=== PATIENT | male | born 1950 | race Caucasian/White ===

== ENCOUNTER 2019-02-07 06:29 | Outpatient (CLI) | payer MEDICARE ==
[2019-02-07] VITALS (12 sets, daily range): BP systolic 123–164; BP diastolic 53–77
[~2019-02-07] VITALS: Ht 172.7 cm; Wt 154.2 kg
[2019-02-07] MEDS ORDERED: BENA1TAB44 PO (07:26)
[2019-02-07] MEDS ORDERED: ALLO300T PO (07:26)
[2019-02-07] MEDS ORDERED: ASPI-630 PO (07:26)
[2019-02-07] MEDS ORDERED: LEVO200T5 PO (07:26)
[2019-02-07] MEDS ORDERED: FURO-69 PO (07:26)
[2019-02-07] MEDS ORDERED: METF500T16 PO (07:26)
[2019-02-07] MEDS ORDERED: ATOR20TA PO (07:26)
[2019-02-07] MEDS ORDERED: POTA10TA12 PO (07:26)
[2019-02-07] MEDS ORDERED: METO25TA2 PO (07:26)
[2019-02-07] MEDS ORDERED: IODIXANOL 320 MG/ML 100 ML VIAL. ONE (07:36)
[2019-02-07] MEDS ORDERED: LIDOCAINE 1% PF 2 ML VIAL. ONE (07:37)
[2019-02-07 07:40] LABS: HEMATOCRIT 45.6 % (39.0-53.0); HEMOGLOBIN 14.9 g/dL (13.0-17.5); RED BLOOD COUNT 4.77 x10^6/uL (4.30-5.70); RED CELL DISTRIBUTION WIDTH 15.9 % (11.5-14.5); WHITE BLOOD COUNT 6.6 x10^3/uL (4.0-11.0)
[2019-02-07 07:50] LABS: CALCIUM 9.5 mg/dL (8.5-10.1); CREATININE 1.2 mg/dL (0.7-1.3); GFR 60.4
[2019-02-07 08:01] LABS: PROTHROMBIN TIME PATIENT 13.2 SEC (11.7-14.0)
[2019-02-07] MEDS ORDERED: fentaNYL PF VIAL 100 MCG/2 ML VIAL ONE (08:18)
[2019-02-07] MEDS ORDERED: HEPARIN for IV BOLUS 10,000 UNIT/10 ML VIAL. ONE (08:18)
[2019-02-07] MEDS ORDERED: MIDAZOLAM HCL/PF 5 MG/5 ML VIAL. ONE (08:18)
[2019-02-07] MEDS ORDERED: NITROGLYCERIN 200 MCG/2 ML SYRINGE FOR CATH/VASC LAB. ONE (08:19)
[2019-02-07] MEDS ORDERED: VERAPAMIL 5 MG/2 ML VIAL. ONE (08:19)
[2019-02-07] MEDS ORDERED: LIDOCAINE 1% PF 2 ML VIAL. INJ ONE (08:45)
[2019-02-07] MEDS ORDERED: MIDAZOLAM HCL/PF 5 MG/5 ML VIAL. IV ONE (08:45)
[2019-02-07] MEDS ORDERED: fentaNYL PF VIAL 100 MCG/2 ML VIAL IV ONE (08:45)
[2019-02-07] MEDS ORDERED: HEPARIN for IV BOLUS 10,000 UNIT/10 ML VIAL. IART ONE (08:45)
[2019-02-07] MEDS ORDERED: IODIXANOL 320 MG/ML 100 ML VIAL. IART ONE (08:45)
[2019-02-07] MEDS ORDERED: VERAPAMIL 5 MG/2 ML VIAL. IART ONE (08:45)
[2019-02-07] MEDS ORDERED: NITROGLYCERIN 200 MCG/2 ML SYRINGE FOR CATH/VASC LAB. IART ONE (08:45)
[2019-02-07] MEDS ORDERED: ADENOSINE 90 MG/30 ML VIAL. IV ONE (09:05)
[2019-02-07] MEDS ORDERED: HEPARIN for IV BOLUS 10,000 UNIT/10 ML VIAL. IV ONE (09:30)
--- NOTE | 2019-02-07 10:01 | CARD ---
MR#: [id number] Date of Study: 02/07/2019 Ordering Physician: KIESHA TOLLIVER, Referring Physician: KIESHA TOLLIVER, Tech: Rosalie Disla APPROVED REPORT Technologist: Rosalie Disla Nurse: Felisha Hirsch R.N. Procedure(s) performed: fl time: 2.9 min dose: 83 gy/cm2 contrast: 61 ml moderate sedation: 29 mins [facility], Coronary Angiography HISTORY The patient is a 68 year-old male with a history of : coronary artery disease. INDICATION The indication(s) include : dyspnea. [facility] Clinical Frailty Scale [facility] Clinical Frailty Scale: Vulnerable Heart Failure Heart Failure: Yes If Yes, Newly Diagnosed: No If Yes, HF Type: Systolic If Yes, NYHA Class: Class II PROCEDURE NARRATIVE INFORMED CONSENT: After explaining the risks and benefits of the procedure and alternatives, informed consent was obtained. The patient was brought electively to the cardiac catheterization lab. A timeout was performed confi rming the patient's name, date of , procedure, and site of procedure. All necessary personnel w ere wearing the appropriate protective equipment and radiation monitor devices. (See nursing notes for medications administered). ACCESS: The right wrist was sterilely prepped and draped in the usual fashion. The right wrist was infiltrat ed with 1 mL of 2% lidocaine for subcutaneous anesthesia. A 6 [place] Terumo glide sheath was inserte d into the right radial artery without difficulty. CORONARY ANGIOGRAPHY: Right and left coronary angiography was performed using a 6Fr TIG 4.0 catheter. Left ventricular en d diastolic pressure was obtained with a pigtail catheter and pullback was performed after left ventr iculography. All catheter exchanges and advancements were performed over a guidewire. CLOSURE: At case completion the right radial sheath was removed and a Terumo radial band was applied with 13 m l of air. COMPLICATIONS: The patient tolerated the procedure well and there were no immediate complications. FINDINGS: HEMODYNAMICS: LVEDP 19 mm Hg No gradient on LV to aortic pullback. AO: 128/78 LEFT VENTRICULOGRAM:Deferred due to known EF of 35-40% CORONARY ANGIOGRAPHY: LM is a large caliber vessel with normal angiographic appearance. LAD is a large caliber vessel with a proximal 50% stenosis. Ramus is a moderate caliber vessel with a proximal 60% stenosis. LCx is a small caliber vessel with mild luminal irregularities OM1 is a small caliber vessel with mild luminal irregularities. RCA is a large caliber dominant vessel that is proximally occluded. The mid to distal RPDA and RPL ar e seen to fill via left to right collaterals. Conclusion 1. Chronic systolic and diastolic Heart failure. 2. Three vessel coronary disease. Recommendations Discussed with patient and family. He is a diabetic with 3V disease and his main symptom is fatigue a nd dyspnea. He has no angina and no significant ischemia by stress testing. He is also morbidly obese . -Would favor aggressive weight loss. -Consider CABG versus PCI of the ramus and LAD if persistent dyspnea with weight loss. Signed by : Kiesha Tolliver, Electronically Approved : 02/07/2019 10:00:54
[2019-02-07] MEDS ORDERED: NITROGLYCERIN SUBLINGUAL 0.4 MG BOTTLE OF 25. SL PRN (12:00)
[2019-02-07] MEDS ORDERED: 0.9 % SODIUM CHLORIDE 10 ML DISP.SYRIN. IV PRN (12:00)
--- NOTE | 2019-02-07 12:23 | NUR ---
Discharge Note: GUILLAUME SANFORD Discharge instructions and discharge home medications reviewed with Patient and a copy given. All questions have been answered and understanding verbalized. Pt able to tolerate PO and ambulatory with slow steady gait. The following instructions and handouts were given: radial site care and sedation Discontinued lines and drains: R hand IV intact. Dressing to R radial site dry and intact Patient discharged to home with family via wheelchair. GISSEL QUINONEZ
== END 2019-02-07 12:13 | disposition home or self-care (01) ==
LOC: CCL 06:29
PROVIDERS: ATTEND Internal Medicine Cardiovascular Disease
DX: I25.10 Atherosclerotic heart disease of native coronary artery without angina pectoris (principal); I50.42 Chronic combined systolic (congestive) and diastolic (congestive) heart failure
CPT/HCPCS: 36415; 80048; 85027; 85610; 85730; 93458; 99152; 99153; C1769; C1892; J1644; J2250; J3010; J3490; Q9967